=== PATIENT | female | born 1950 | race Caucasian/White ===

== ENCOUNTER 2022-02-11 09:42 | Inpatient (IN) | payer OTHER ==
[2022-02-11 10:18] VITALS: BMI 29.4
[2022-02-11] MEDS ORDERED: LOPERAMIDE HCL 2 MG CAPSULE PO PRN (10:38)
[2022-02-11] MEDS ORDERED: diazePAM 5 MG TABLET PO PRN (10:38)
[2022-02-11] MEDS ORDERED: ONDANSETRON *ODT* 4 MG TABLET SL PRN (10:38)
[2022-02-11] MEDS ORDERED: MAGNESIUM HYDROX 2400MG/30ML ORAL SUSPENSION 30 ML CUP PO PRN (10:38)
[2022-02-11] MEDS ORDERED: MAGNESIUM CITRATE 300 ML BOTTLE PO PRN (10:38)
[2022-02-11] MEDS ORDERED: MAG HYDROX/AL HYDROX/SIMETH 30 ML UNIT-DOSE CUP PO PRN (10:38)
[2022-02-11] MEDS ORDERED: BENZOCAINE/MENTHOL (CHLORASEPTIC ) LOZENGE MM PRN (10:38)
[2022-02-11] MEDS ORDERED: BISMUTH SUBSALICYLATE 524 MG/30 ML PO PRN (10:38)
[2022-02-11] MEDS ORDERED: ACETAMINOPHEN 325 MG TABLET (FP) PO PRN ×2 (10:38)
[2022-02-11] MEDS ORDERED: IBUPROFEN 600 MG TABLET (FP) PO PRN (10:38)
[2022-02-11] MEDS ORDERED: DICYCLOMINE HCL 10 MG CAPSULE PO PRN (10:38)
[2022-02-11] MEDS: diazePAM 5 MG TABLET PO SCH ×3 (11:19→22:28)
[2022-02-11] MEDS: PRENATAL VITAMINS W/ FOLIC ACID TABLET (FP) PO SCH (11:59)
[2022-02-11] MEDS ORDERED: hydrOXYzine PAMOATE 25 MG CAPSULE (FP) PO SCH (14:00)
[2022-02-11] MEDS: hydrOXYzine PAMOATE 25 MG CAPSULE (FP) PO PRN (14:04)
[2022-02-11] MEDS: diazePAM 5 MG TABLET PO PRN (15:31)
[2022-02-11] MEDS: metFORMIN HCL 500 MG TABLET (FP) PO SCH (18:06)
[2022-02-11] MEDS: INSULIN SLIDING SCALE (NOVOLOG) 1 VIAL SQ SCH (18:27)
[2022-02-11] MEDS: THIAMINE HCL 100 MG TABLET (FP) PO SCH (22:27)
[2022-02-11] MEDS: ATORVASTATIN CA 20 MG TABLET (FP) PO SCH (22:27)
[2022-02-11] MEDS: MELATONIN 5 MG TABLETS PO SCH (22:27)
[2022-02-11] MEDS: MAGNESIUM OXIDE 400 MG TABLET (FP) PO SCH (23:49)
[2022-02-12] MEDS: diazePAM 5 MG TABLET PO SCH ×4 (05:56→22:11)
[2022-02-12] MEDS: metFORMIN HCL 500 MG TABLET (FP) PO SCH ×2 (05:59→17:51)
[2022-02-12] MEDS: INSULIN SLIDING SCALE (NOVOLOG) 1 VIAL SQ SCH ×3 (06:00→17:52)
[2022-02-12] MEDS: LISINOPRIL 10 MG TABLET PO SCH (10:14)
[2022-02-12] MEDS: PRENATAL VITAMINS W/ FOLIC ACID TABLET (FP) PO SCH (10:14)
[2022-02-12] MEDS: CHOLECALCIFEROL (VIT D3) 1,000 UNIT (25 MCG) TABLET PO SCH (10:15)
[2022-02-12] MEDS: MAGNESIUM OXIDE 400 MG TABLET (FP) PO SCH ×2 (12:02→22:10)
[2022-02-12] MEDS: diazePAM 5 MG TABLET PO PRN (19:25)
[2022-02-12] MEDS: ATORVASTATIN CA 20 MG TABLET (FP) PO SCH (22:10)
[2022-02-12] MEDS: MELATONIN 5 MG TABLETS PO SCH (22:10)
[2022-02-12] MEDS: THIAMINE HCL 100 MG TABLET (FP) PO SCH (22:10)
[2022-02-13] MEDS: METHOCARBAMOL 500 MG TABLET PO PRN ×2 (00:54→06:41)
[2022-02-13] MEDS: hydrOXYzine PAMOATE 25 MG CAPSULE (FP) PO PRN (00:54)
[2022-02-13] MEDS: diazePAM 5 MG TABLET PO SCH ×3 (06:34→22:10)
[2022-02-13] MEDS: metFORMIN HCL 500 MG TABLET (FP) PO SCH ×2 (06:38→18:11)
[2022-02-13] MEDS: IBUPROFEN 400 MG TABLET (FP) PO PRN ×2 (06:42→18:13)
[2022-02-13] MEDS: INSULIN SLIDING SCALE (NOVOLOG) 1 VIAL SQ SCH ×3 (07:07→18:12)
[2022-02-13] MEDS: LISINOPRIL 10 MG TABLET PO SCH (10:33)
[2022-02-13] MEDS: PRENATAL VITAMINS W/ FOLIC ACID TABLET (FP) PO SCH (10:33)
[2022-02-13] MEDS: CHOLECALCIFEROL (VIT D3) 1,000 UNIT (25 MCG) TABLET PO SCH (10:33)
[2022-02-13] MEDS: MAGNESIUM OXIDE 400 MG TABLET (FP) PO SCH ×2 (10:33→22:10)
[2022-02-13] MEDS: diazePAM 5 MG TABLET PO PRN (10:48)
[2022-02-13 14:54] LABS: HEMATOCRIT 38.7 % (32.4-45.2); HEMOGLOBIN 13.2 GM/dL (10.7-15.3); MCHC 34.2 g/dl (32.0-36.0); MEAN CELL VOLUME 93.6 fl (80-96); MEAN PLT VOLUME 8.5 fl (7.5-11.1); PLATELET COUNT 240 10^3/uL (134-434); RBC 4.13 M/mm3 (3.60-5.2); RDW 13.5 % (11.6-15.6); WHITE BLOOD COUNT 6.7 K/mm3 (4.0-10.0)
[2022-02-13 15:05] LABS: CALCIUM 9.5 mg/dL (8.5-10.1)
[2022-02-13 15:06] LABS: ALBUMIN 3.7 g/dl (3.4-5.0); BLOOD UREA NITROGEN 12.1 mg/dL (7-18)
[2022-02-13 15:09] LABS: CREATININE 0.8 mg/dL (0.55-1.3)
[2022-02-13 15:10] LABS: BILIRUBIN,TOTAL 0.8 mg/dL (0.2-1)
[2022-02-13 15:11] LABS: TOT PROT 6.8 g/dl (6.4-8.2)
[2022-02-13] MEDS: ATORVASTATIN CA 20 MG TABLET (FP) PO SCH (22:10)
[2022-02-13] MEDS: THIAMINE HCL 100 MG TABLET (FP) PO SCH (22:10)
[2022-02-13] MEDS: MELATONIN 5 MG TABLETS PO SCH (22:10)
[2022-02-14] MEDS: diazePAM 5 MG TABLET PO SCH ×2 (06:40→18:09)
[2022-02-14] MEDS: METHOCARBAMOL 500 MG TABLET PO PRN ×2 (06:41→22:16)
[2022-02-14] MEDS: INSULIN SLIDING SCALE (NOVOLOG) 1 VIAL SQ SCH ×3 (06:41→18:10)
[2022-02-14] MEDS: metFORMIN HCL 500 MG TABLET (FP) PO SCH ×2 (06:41→18:09)
[2022-02-14] MEDS: PRENATAL VITAMINS W/ FOLIC ACID TABLET (FP) PO SCH (10:45)
[2022-02-14] MEDS: MAGNESIUM OXIDE 400 MG TABLET (FP) PO SCH ×2 (10:45→22:19)
[2022-02-14] MEDS: LISINOPRIL 10 MG TABLET PO SCH (10:45)
[2022-02-14] MEDS: hydrOXYzine PAMOATE 25 MG CAPSULE (FP) PO PRN (10:45)
[2022-02-14] MEDS: CHOLECALCIFEROL (VIT D3) 1,000 UNIT (25 MCG) TABLET PO SCH (10:45)
[2022-02-14] MEDS ORDERED: diazePAM 2 MG TABLET PO PRN (12:10)
[2022-02-14] MEDS: diazePAM 5 MG TABLET PO PRN (22:16)
[2022-02-14] MEDS: MELATONIN 5 MG TABLETS PO SCH (22:16)
[2022-02-14] MEDS: THIAMINE HCL 100 MG TABLET (FP) PO SCH (22:19)
[2022-02-14] MEDS: ATORVASTATIN CA 20 MG TABLET (FP) PO SCH (22:19)
[2022-02-15] MEDS: diazePAM 5 MG TABLET PO PRN (04:38)
[2022-02-15] MEDS ORDERED: diazePAM 5 MG TABLET PO ONE (06:00)
[2022-02-15] MEDS: INSULIN SLIDING SCALE (NOVOLOG) 1 VIAL SQ SCH ×2 (07:04→12:01)
[2022-02-15] MEDS: metFORMIN HCL 500 MG TABLET (FP) PO SCH (07:04)
[2022-02-15] MEDS: MAGNESIUM OXIDE 400 MG TABLET (FP) PO SCH (10:07)
[2022-02-15] MEDS: PRENATAL VITAMINS W/ FOLIC ACID TABLET (FP) PO SCH (10:07)
[2022-02-15] MEDS: CHOLECALCIFEROL (VIT D3) 1,000 UNIT (25 MCG) TABLET PO SCH (10:07)
[2022-02-15] MEDS: LISINOPRIL 10 MG TABLET PO SCH (10:07)
[2022-02-15] MEDS: hydrOXYzine PAMOATE 25 MG CAPSULE (FP) PO PRN (10:07)
[2022-02-15] MEDS: METHOCARBAMOL 500 MG TABLET PO PRN (12:02)
[2022-02-15 13:04] VITALS: BP 114/70; PULSE 80; RESP 18; TEMP 97.7
== END 2022-02-15 14:38 | disposition home or self-care (01) | DRG 897 ==
LOC: YASAS 09:42 → Y3N 10:58
PROVIDERS: ADMIT Allergy & Immunology; ATTEND Surgery
PROC: HZ2ZZZZ Detoxification Services for Substance Abuse Treatment (ICD-10-PCS; principal; 2022-02-11)
DX: F13.230 Sedative, hypnotic or anxiolytic dependence with withdrawal, uncomplicated (principal); F41.9 Anxiety disorder, unspecified; F32.A Depression, unspecified; E78.5 Hyperlipidemia, unspecified; G47.00 Insomnia, unspecified; E11.9 Type 2 diabetes mellitus without complications; Z79.84 Long term (current) use of oral hypoglycemic drugs; M17.0 Bilateral primary osteoarthritis of knee
CPT/HCPCS: 36415; 80053; 82962; 85027; 86780; 93005; 93010; C9803-CS; U0003; U0005